=== PATIENT | male | born 1985 | race Caucasian/White ===

== ENCOUNTER → 2016-11-01 | Outpatient (CLI) | payer BC ==
[~2016-11-01] MED LIST: AMBIEN CR PO; CYCLOBENZAPRINE PO; GEODAN PO; KLONOPIN PO; LEXAPRO PO; PANTOPRA; PROTONIX
--- NOTE | ~2016-11-01 | MR82 ---
[facility] A Service of [facility] RADIOLOGY TEXT RESULTS PATIENT: ALAINA BENITEZ LOCATION: [facility] : 83 UNIT #: [id number] AGE: [address]: ROSSY GREGG APRN SEX: M ORDER DR: [id number] [address] [address] [id number] O MR#: [id number] Acc #: [id number] NAME: ALAINA BENITEZ : 1985 SEX: M STUDY DATE/TIME: 11/01/2016 15:15 UNIT: [facility] ROOM: STUDY DESCRIPTION: MR Hip Wo Contrast Tomas Attending Physician: Rossy Gregg Aprn Referring Physician: Rossy Gregg Aprn Ordering Physician: Rossy Gregg Aprn Primary Care Physician: Rossy Gregg Aprn MRI CENTER REPORT This report is preliminary unless electronic signature is present. EXAM Bilateral hip MRI without contrast 11/01/2016 HISTORY 30-year-old male with chronic bilateral hip pain for several years. No specific injury. No prior hip surgery COMPARISON None. TECHNIQUE Routine unenhanced multiplanar, multisequence high field MR imaging of the pelvis and both hips was performed. FINDINGS Bone marrow signal is within normal limits. No evidence of acute fracture, avascular necrosis, or significant arthrosis in either hip. Joint spaces are maintained. No hip effusions. No evidence of an acetabular labral tear in either hip. Gluteal tendon insertions and common hamstring tendon origins are within normal limits. No significant bursal inflammation. Sacrum and SI joints are intact. Pelvic musculature is normal in signal. Visualized visceral pelvis is unremarkable. IMPRESSION 1. Unremarkable examination. No evidence of acute fracture, avascular necrosis, or significant arthrosis in either hip. 2. Gluteal tendon insertions and common hamstring tendon origins are within normal limits. No significant bursal inflammation. Dictated by... [facility] A Service of [facility] RADIOLOGY TEXT RESULTS PATIENT: ALAINA BENITEZ LOCATION: [facility] : 83 UNIT #: [id number] AGE: [address]: ROSSY GREGG APRN SEX: M ORDER DR: Jayme Tracey M.D. THIS IS AN ELECTRONICALLY VERIFIED REPORT Jayme Tracey M.D. at 11/03/2016 8:09 AM Zachary TD: 11/03/2016 07:19 JOB #: [id number] MRI CENTER REPORT Page 1 of 1
--- NOTE | ~2016-11-01 | MR113 ---
[facility] A Service of [facility] RADIOLOGY TEXT RESULTS PATIENT: ALAINA BENITEZ LOCATION: [facility] : 83 UNIT #: [id number] AGE: [address]: ROSSY GREGG APRN SEX: M ORDER DR: [id number] [address] [address] [id number] O MR#: [id number] Acc #: [id number] NAME: ALAINA BENITEZ : 1985 SEX: M STUDY DATE/TIME: 11/01/2016 14:47 UNIT: [facility] ROOM: STUDY DESCRIPTION: MR Lumbar Wo Contrast Attending Physician: Rossy Gregg Aprn Referring Physician: Rossy Gregg Aprn Ordering Physician: Rossy Gregg Aprn Primary Care Physician: Rossy Gregg Aprn MRI CENTER REPORT This report is preliminary unless electronic signature is present. EXAM Lumbar spine MRI without contrast 11/01/2016 PROCEDURE Routine unenhanced lumbar spine MRI. COMPARISON None. HISTORY Low back pain radiating to both hips. FINDINGS Spine alignment is normal. Bone marrow signal is normal. The distal cord and conus are normal in position and appearance and the paraspinous tissues are normal. At 1-2, 2-3 and 3-4, at each level the disc canal and foramina are normal. At 4-5, there is disc desiccation and slight bulge and a small right paracentral disc protrusion. There is no canal stenosis though there is slight right lateral recess compromise. There is mild or even mild to moderate right and borderline to mild left foraminal stenosis. IMPRESSION Mild degenerative change at 4-5 with mild right lateral recess compromise and mild or even mild to moderate right foraminal narrowing, otherwise negative lumbar spine MRI without contrast. Dictated by... Esequiel Rodrigues M.D. [facility] A Service [facility] RADIOLOGY TEXT RESULTS PATIENT: ALAINA BENITEZ LOCATION: [facility] : 83 UNIT #: [id number] AGE: [address]: ROSSY GREGG APRN SEX: M ORDER DR: THIS IS AN ELECTRONICALLY VERIFIED REPORT Esequiel Rodrigues M.D. at 11/04/2016 10:32 AM MALLIKA/yolie TD: 11/02/2016 14:44 JOB #: [id number] MRI CENTER REPORT Page 1 of 1
== END | disposition home or self-care (01) ==
LOC: SMRI 13:45
DX: M54.5 Low back pain (principal); M25.551 Pain in right hip; M25.552 Pain in left hip; M47.896 Other spondylosis, lumbar region
CPT/HCPCS: 72148; 73721